=== PATIENT | female | born 1980 | race Caucasian/White ===

== ENCOUNTER 2019-02-22 15:31 | Emergency (ER) | payer MEDICAID, OTHER ==
[~2019-02-22] VITALS: Ht 167.6 cm; Wt 62.0 kg
[~2019-02-22 15:31] MED LIST: HYDR-4353 PO; HYDR-4383 PO
[2019-02-22 15:40] VITALS: BP 123/89
[2019-02-22] MEDS ORDERED: LIDOcaine 1% w/epiNEPHrine 1:200,000 30ml vial IM ONE (16:05)
== END 2019-02-22 16:51 | disposition left against medical advice (07) ==
LOC: ER 15:32
DX: S63.286A Dislocation of proximal interphalangeal joint of right little finger, initial encounter (principal); S40.022A Contusion of left upper arm, initial encounter; F31.9 Bipolar disorder, unspecified; F20.9 Schizophrenia, unspecified; Z88.6 Allergy status to analgesic agent; Z79.899 Other long term (current) drug therapy; W20.8XXA Other cause of strike by thrown, projected or falling object, initial encounter; Y93.89 Activity, other specified; Y92.89 Other specified places as the place of occurrence of the external cause; Y99.8 Other external cause status
CPT/HCPCS: 73110; 73130; 99283

== ENCOUNTER 2025-04-05 10:43 | Emergency (ER) | payer MEDICAID ==
[~2025-04-05] VITALS: Ht 167.6 cm; Wt 73.0 kg
[2025-04-05 11:04] VITALS: BP 139/75; PULSE 79; TEMP 98.2; O2SAT 100
--- NOTE | 2025-04-05 13:30 | Physician Documentation ---
HPI ~ General Chief Complaint: Mouth Pain Stated Complaint: MOUTH PAIN Time Seen by MD: 12:21 Primary Medical Doctor: NONE History of Present Illness HPI Comment Patient is seen today with complaints of swelling of her jaw and dental pain in severe dental decay and abscess tooth. Patient denies any fever or chills. She states she needs some pain relief and has no other concern or complaint at this time. Medication Reconciliation Allergies: Coded Allergies: No Known Allergies (Unverified , 04/05/25) Scheduled Hydrocodone Bit/Acetaminophen ([place] 10-325 Tablet), 1 TAB PO Q6H Hydrocodone/Acetaminophen ([place] 5-325 Tablet), 1-2 TABLET PO Q4H Past Medical History Past Medical History: Bipolar, Schizophrenia Past Surgical History: no surgical history Other Past Family History: NONE KNOWN Alcohol Use: None Drug Use: none Lives with: S/O Lives In: Home Review of Systems Constitutional: Denies: chills, fever, weakness Eyes: Denies: pain, blurred vision ENT: Denies: ear pain, nose pain, throat pain, mouth pain Respiratory: Denies: cough, shortness of breath Cardiovascular: Denies: chest pain, palpitations Gastrointestinal: Denies: abdominal pain, nausea, vomiting Genitourinary: Denies: burning, dysuria Female Genitalia: Denies: vaginal discharge, pelvic pain Neurological: Denies: headache, dizziness Musculoskeletal: Denies: pain, swelling Integumentary: Denies: rash, lesions Allergic/Immunologic: Denies: hives, itching Hematologic/Lymphatic: Denies: no symptoms reported Psychiatric: Denies: depression, anxiety Physical Exam Vital Signs: Temperature: 98.2, Source: Oral, Heart Rate: 79, Respiratory Rate: 18, BP: 139/75, Pulse Oximetry: 100, Weight: 73.000 Oxygen Flow Rate: 0 Physical Exam General: Awake and Alert, no acute distress. HEENT: Patient on exam does have extremely poor dentition with multiple dental fractures and dental caries and dental decay and some swelling of her left lower jaw without periapical abscess visualized. Conjunctiva pink, Sclera clear, Mucus Membranes moist. Neck: Supple without masses and tenderness. Resp: Unlabored. Lungs clear to auscultation bilaterally. Extremities: No cyanosis,clubbing or edema. Skin: Warm and Dry. Progress Results/Orders Results/Orders Vital Signs 04/05/25 11:04 Temp 98.2 Pulse 79 Resp 18 B/P (MAP) 139/75 Pulse Ox 100 O2 Flow Rate 0 Medical Decision Making Findings Patient is seen today with complaints of swelling of her jaw and dental pain in severe dental decay and abscess tooth. Patient denies any fever or chills. She states she needs some pain relief and has no other concern or complaint at this time. Patient was given Toradol 30 mg IM as well as amoxicillin a 1000 mg by mouth in the ED today. Prescription of ibuprofen and Tylenol and amoxicillin sent to patient's pharmacy. Patient will take them as prescribed. She will make appointment with dentist as soon as possible and return to ED with any worsening, concerning or changing symptoms. Departure Disposition: HOME / SELF CARE / HOMELESS Impression: Primary Impression: Dental abscess Condition: Improved Discharge Instructions: Dental Abscess, [id number] Additional Instructions: Patient was given Toradol 30 mg IM as well as amoxicillin a 1000 mg by mouth in the ED today. Prescription of ibuprofen and Tylenol and amoxicillin sent to patient's pharmacy. Patient will take them as prescribed. She will make appointment with dentist as soon as possible and return to ED with any worsening, concerning or changing symptoms. Referrals: NO PRIMARY CARE PROVIDER (PCP) Prescriptions Acetaminophen (Tylenol Extra Strength) 500 Mg Tablet 2 TAB PO Q6H PRN PRN for pain or fever for 7 Days, #56 TAB Prov: DOMINGO BRENNAN 04/05/25 Ibuprofen (Ibuprofen) 800 Mg Tablet 1 TAB PO Q8H for pain for 10 Days, #30 TAB 0 Refills Prov: DOMINGO BRENNAN 04/05/25 Amoxicillin Trihydrate (Amoxicillin) 875 Mg Tablet 1 TAB PO Q12H for 10 Days, #20 TAB Prov: DOMINGO BRENNAN 04/05/25 Signature Scribe Signature: No scribe Attestation: No scribe DOMINGO BRENNAN Apr 05, 2025 13:30
[2025-04-05] MEDS ORDERED: AMOX875T10 PO (13:42)
[2025-04-05] MEDS ORDERED: ACET-1025 PO (13:42)
[2025-04-05] MEDS ORDERED: IBUP-1986 PO (13:42)
[2025-04-05 13:57] VITALS: RESP 18
[2025-04-05] MEDS: ketorolac trometh 30MG/ML vial 30 MG/ML VIAL IM STA (13:57)
== END 2025-04-05 14:00 | disposition home or self-care (01) ==
LOC: ER 10:44
DX: K04.7 Periapical abscess without sinus (principal); F20.9 Schizophrenia, unspecified; F31.9 Bipolar disorder, unspecified
CPT/HCPCS: 96372; 99283; J1885